=== PATIENT | male | born 1965 | race Caucasian/White ===

== ENCOUNTER 2020-06-11 07:16 | Emergency (ER) | payer MEDICAID ==
[~2020-06-11] VITALS: Ht 172.7 cm; Wt 83.9 kg
[~2020-06-11 07:16] MED LIST: OMEP20TA5 PO; [UNRECOGNIZED DRUG - CODE] PO
[2020-06-11] MEDS ORDERED: ONDANSETRON HCL/PF 4 MG/2 ML VIAL IVP ONE (07:30)
[2020-06-11] MEDS ORDERED: MORPHINE SULFATE INJ 2 MG/ML DISP.SYRIN IV ONE (07:30)
[2020-06-11] MEDS ORDERED: IV NS 0.9% 500 ML BAG IV ONE (07:30)
[2020-06-11] MEDS ORDERED: MORPHINE SULFATE INJ 4 MG/ML DISP.SYRIN ONE (07:46)
[2020-06-11] MEDS ORDERED: ONDANSETRON HCL/PF 4 MG/2 ML VIAL ONE (07:47)
--- NOTE | 2020-06-11 07:59 | NUR ---
Patient awake alert c/c chst pain now nauseated and vomit x 1 meds given hooked in the monitor ,Ekg , continue to monitor .
[2020-06-11 08:02] LABS: BASOPHILS # (AUTO) 0.1 /CMM (0.0-0.2); BASOPHILS % (AUTO) 0.5 % (0.0-2.0); EOSINOPHILS % (AUTO) 2.2 % (0.0-6.0); HEMATOCRIT 43 % (39-51); HEMOGLOBIN 14.6 g/dL (13.5-17.5); LYMPHOCYTES # (AUTO) 4.1 /CMM (0.8-4.8); MEAN CORPUSCULAR HGB CONC 34 g/dl (31.0-36.0); MEAN CORPUSCULAR VOLUME 89 fL (80-96); MONOCYTES # (AUTO) 0.8 /CMM (0.1-1.30); MONOCYTES % (AUTO) 7.4 % (2.0-12.0); NEUTROPHILS # (AUTO) 6.2 /CMM (1.8-8.9); NEUTROPHILS % (AUTO) 53.9 % (43.0-81.0); PLATELET COUNT (AUTO) 221 /CMM (150-450); RED BLOOD CELL COUNT(AUTO) 4.85 MIL/uL (4.5-6.0); WHITE BLOOD COUNT (AUTO) 11.5 K/uL (4.3-11.0)
[2020-06-11 08:31] LABS: CALCIUM, SERUM 9.1 mg/dL (8.5-10.1); CARBON DIOXIDE 28 mmol/L (21-32); CHLORIDE 106 mmol/L (98-107); CREATININE 1.1 mg/dL (0.6-1.3); GLUCOSE 144 mg/dL (74-106); POTASSIUM 4.3 mmol/L (3.5-5.1); SODIUM SERUM 141 mmol/L (136-145); UREA NITROGEN, BLOOD 23 mg/dL (7-18)
[2020-06-11 08:43] LABS: ALANINE AMINOTRANSFERASE 42 U/L (12-78); ALBUMIN 3.8 g/dL (3.4-5.0); ALKALINE PHOSPHATASE 48 U/L (46-116); ASPARTATE AMINOTRANSFERASE 18 U/L (15-37); B-TYPE NATRIURETIC PEPTIDE 23 PG/ML (0-125); BILIRUBIN,DIRECT 0.1 mg/dL (0.0-0.2); BILIRUBIN,TOTAL 0.4 mg/dL (0.2-1.0); TOTAL PROTEIN, SERUM 7.1 g/dL (6.4-8.2)
--- NOTE | 2020-06-11 09:32 | NUR ---
MAVERICK BEDOYA FROM [facility] [phone].
--- NOTE | 2020-06-11 09:51 | NUR ---
covid swab obatined and send to lab
--- NOTE | 2020-06-11 10:49 | NUR ---
Lab called for COVID result- Negative
--- NOTE | 2020-06-11 10:58 | NUR ---
MAVERICK BEDOYA FROM [facility] CALLED AND ASKED FOR COVID TEST RESULTS TO BE FAXED. FAXED ALL LAB RESULTS TO [phone]
[2020-06-11 11:00] VITALS: BP_SYST 120
--- NOTE | 2020-06-11 11:42 | NUR ---
Patient Tranfers to outside Facility Physician:Dr. Avery Location:[facility] room: 224-A nurse: Santa [phone] ETA: [id number]
--- NOTE | 2020-06-11 12:11 | NUR ---
called report to Santa from [facility] 224-b .
[2020-06-11 12:31] VITALS: BP_DIAS 118
== END 2020-06-11 13:46 | disposition short-term general hospital (02) ==
LOC: ER 07:21
DX: R07.9 Chest pain, unspecified (principal); K21.9 Gastro-esophageal reflux disease without esophagitis; Z88.2 Allergy status to sulfonamides; Z20.822 Contact with and (suspected) exposure to COVID-19
CPT/HCPCS: 36415; 71045; 80048; 80076; 83880; 84484; 85025; 85730; 87426; 93005; 96374; 96375; 99285; A7526; C9803; J2270; J2405

== ENCOUNTER 2025-03-21 23:25 | Emergency (ER) | payer MEDICAID ==
[~2025-03-21] VITALS: Ht 172.7 cm; Wt 79.4 kg
[2025-03-21 23:38] VITALS: TEMP 98.3
[2025-03-22] MEDS ORDERED: TAMSULOSIN 0.4 MG CAP.SR.24H ONE ×2 (00:05→01:40)
[2025-03-22] MEDS ORDERED: MORPHINE SULFATE INJ 4 MG/ML DISP.SYRIN ONE ×2 (00:05→01:23)
[2025-03-22] MEDS ORDERED: ONDANSETRON HCL/PF 4 MG/2 ML VIAL ONE (00:05)
[2025-03-22 00:19] LABS: PLATELET COUNT (AUTO) 233 K/uL (150-450); RED BLOOD CELL COUNT(AUTO) 4.87 MIL/uL (4.5-6.0); RED CELL DISTRIBUTION WIDTH 13.9 % (11.5-15.0); WHITE BLOOD COUNT (AUTO) 13.2 K/uL (4.3-11.0)
[2025-03-22] MEDS: MORPHINE SULFATE INJ 2 MG/ML DISP.SYRIN IV ONE ×2 (00:21→01:26)
[2025-03-22] MEDS: TAMSULOSIN 0.4 MG CAP.SR.24H PO ONE ×2 (00:22→01:43)
[2025-03-22] MEDS: ONDANSETRON HCL/PF 4 MG/2 ML VIAL IVP ONE (00:22)
[2025-03-22 00:34] LABS: CALCIUM, SERUM 8.9 mg/dL (8.5-10.1); CREATININE 1.0 mg/dL (0.6-1.3); SODIUM SERUM 139.0 mmol/L (136-145); UREA NITROGEN, BLOOD 12.0 mg/dL (7-18)
[2025-03-22 00:42] LABS: INR 1.0 (0.91-1.10)
[2025-03-22 01:05] VITALS: BP 135/80; O2SAT 99
[2025-03-22] MEDS ORDERED: HYDROMORPHONE 1 MG/1 ML DISP.SYRIN ONE (02:44)
[2025-03-22] MEDS: HYDROMORPHONE 1 MG/1 ML DISP.SYRIN IV ONE (02:51)
== END 2025-03-22 04:06 | disposition left against medical advice (07) ==
LOC: ER 23:31
DX: R33.9 Retention of urine, unspecified (principal); N40.1 Benign prostatic hyperplasia with lower urinary tract symptoms; F17.200 Nicotine dependence, unspecified, uncomplicated; Z88.2 Allergy status to sulfonamides; Z79.899 Other long term (current) drug therapy
CPT/HCPCS: 36415; 51700; 74176; 80048; 85025; 85730; 93005; 96374; 96375; 96376; 99285; J1171; J2270; J2405